=== PATIENT | male | born 1945 | race Caucasian/White ===

== ENCOUNTER 2019-11-10 10:49 | Day surgery (SDC) | payer BC ==
[2019-11-09 16:43] LABS: Urine Appearance CLEAR; Urine Bilirubin NEGATIVE (NEG); Urine Blood 3+ (NEG); Urine Color YELLOW; Urine Glucose NEGATIVE (NEG); Urine Protein 1+ (NEG); Urine Urobilinogen 0.2 mg/dL (0.2-1.0)
[2019-11-09 16:45] LABS: Absolute Lymphocytes (CBC) 1.3 K/uL (0.7-4.9); Hematocrit 34.9 % (39.6-49.0); MPV 9.2 fL (7.6-11.3); RBC Red Blood Cell Count 4.07 M/uL (4.33-5.43)
[2019-11-09 16:48] LABS: Urine Microscopic Reflex ORDER UMIC
[2019-11-09 16:51] LABS: Protime INR 1.02
[2019-11-09 17:04] LABS: Potassium 3.9 mmol/L (3.5-5.1)
[2019-11-09 17:05] LABS: Urine Bacteria <20 /HPF (NONE SEEN); Urine Culture Reflex Order NOT NEEDED; Urine Mucus 2+ /HPF (NONE SEEN); Urine RBC >50 /HPF (NONE SEEN)
[2019-11-09 17:06] LABS: Phosphorus 3.3 mg/dL (2.5-4.9); Uric Acid 5.3 mg/dL (3.5-7.2)
[2019-11-10] MEDS ORDERED: Ringers Lactate 1,000 ML IV ONE (11:01)
[2019-11-10] MEDS ORDERED: GENTAMICIN 80 MG/100 ML BAG 80 MG/100 ML BAG IV ONE (11:01)
[2019-11-10] MEDS ORDERED: FENTANYL CITR 100 MCG/2 ML ONE (12:06)
[2019-11-10] MEDS ORDERED: propofoL 200 MG/20 ML VIAL IV ONE (12:06)
[2019-11-10] MEDS ORDERED: LIDOCAINE 1% MPF 5 ML VIAL ONE (12:06)
[2019-11-10] MEDS ORDERED: Phenylephrine HCl 10 MG/ML 1 ML VIAL ONE (12:06)
[2019-11-10] MEDS ORDERED: MIDAZOLAM HCL 2 MG/2 ML INJ ONE (12:06)
[2019-11-10] MEDS ORDERED: EPHEDRINE SULF 50 MG/ML VIAL ONE (12:07)
[2019-11-10] MEDS ORDERED: ATROPINE SULF 1 MG/10 ML SYR IV ONE (12:07)
[2019-11-10] MEDS ORDERED: NS 0.9% VIAL 10 ML ONE (12:07)
[2019-11-10] MEDS ORDERED: KETOROLAC 30 MG/ML INJ ONE (12:26)
[2019-11-10] MEDS ORDERED: ONDANSETRON 4 MG/2 ML VIAL ONE (12:36)
[2019-11-10] MEDS ORDERED: Mastisol Adhesive Liq ONE (13:18)
--- NOTE | 2019-11-10 13:30 | RAD REPORT ---
EXAM DESCRIPTION: RAD - Urethrocystogrphy Retrograde - 11/10/2019 1:25 pm CLINICAL HISTORY: STENT COMPARISON: No comparisons FINDINGS: Total fluoro time: 2 minutes 54 seconds.
[2019-11-10 15:10] VITALS: BP 160/62; TEMP 97; O2SAT 98
== END 2019-11-10 14:55 | disposition home or self-care (01) ==
LOC: OR 10:49
PROVIDERS: ATTEND Urology
PROC: 0T768DZ Dilation of Right Ureter with Intraluminal Device, Via Natural or Artificial Opening Endoscopic (ICD-10-PCS; 2019-11-10)
PROC: 0TF68ZZ Fragmentation in Right Ureter, Via Natural or Artificial Opening Endoscopic (ICD-10-PCS; principal; 2019-11-10 12:00)
DX: N20.1 Calculus of ureter (principal); Z87.891 Personal history of nicotine dependence
CPT/HCPCS: 87088; 85025; 87086; 80048; 36415; 84100; 85610; 84550; 85730; 82360; 74450; 51610; 52356; G0103; J2704; J3010; J7120; J1580; J2405; 81003; 81015; J2250; J2370

== ENCOUNTER 2022-08-24 14:21 | Emergency (ER) | payer OTHER ==
--- OUTSIDE RECORDS SUMMARY | 2022-08-24 14:25 | XMS REPORT | Continuity of Care Document ---
:1945 Author Organization [facility] t Address [address] [place] [address] Care Team Providers Name Role Phone AILYN GALVAN Primary Care Physician Unavailable Ailyn Galvan MD Attending Clinician AILYN GALVAN Attending Clinician Unavailable Cricket Muniz Attending Clinician Payers Payer Name Policy Type Policy Number Effective Date Expiration Date S ource Problems Condition Condition Condition Status Onset Resolution Last Treating Co mments Source Name Details Category Date Date Treatment Clinician Date Obesity Obesity Disease Active 2015-11 Univers (BMI (BMI 2-02 ity of 30-39.9) 30-39.9) 00:00: [address] Branch Difficult Difficult Disease Active 2015-11 Overview: Univers intubation intubation 2-02 Formattin ity of 00:00: g of this note Medical might be Branch different from the original. DLx31. MIL 2 - Grade 32. MAC 4 - Grade 33. CMAC 3 - Grade 2b, difficult placement with stylet, required twisting to pass cords. Hyperglyce Hyperglyce Disease Active 2015-11 U nivers gladis gladis 2-01 ity of 00:00: Medical Branch Melanoma Melanoma Disease Active 2015-11 Unive rs of ear, of ear, 0-29 ity of left left 00:00: Medical Branch Psoriasis Psoriasis Disease Active 2015-11 Uni vers 0-29 ity of 00:00: [place] [address] Medical Branch Malignant Malignant Problem Resolve 2022-02-02 Memoria melanoma melanoma d 02:40:18 l (disorder) (disorder) He rmann Resolved Problem 02/02/2022 [facility] Morbid Morbid Problem Active 2022-02-02 Uziel elijah obesity obesity 02:40:18 l (disorder) (disorder) He rmann Active Problem 02/02/2022 [facility] Vertigo Vertigo Problem Active 2022-02-02 Me moria (finding) (finding) 02:40:18 l Active Mikal Problem 02/02/2022 [facility] Psoriatic Psoriatic Problem Active 2022-02-02 Memoria arthritis arthritis 02:40:18 l (disorder) (disorder) He rmann Active Problem 02/02/2022 [facility] Allergies, Adverse Reactions, Alerts Allergy Allergy Status Severity Reaction(s) Onset Inactive Treating Comm ents Source Name Type Date Date Clinician NO KNOWN Drug Active Univers ALLERGIE Class ity of S [facility] Social History Social Habit Start Date Stop Date Quantity Comments Source Exposure to 2022-03-29 2022-04-08 Not sure [facility] SARS-CoV-2 00:00:00 16:12:00 [facility] (event) [place] Alcohol intake 2021-04-12 2021-04-12 0 /d [facility] 00:00:00 00:00:00 [facility] Social History 2021-02-14 2021-02-14 [facility] 18:44:28 18:44:28 Tobacco use and 2016-10-08 2016-10-[address] [facility] of exposure 00:00:00 00:00:00 [facility] History of 2000-09-24 Chews Tobacco University of tobacco use 00:00:00 [facility] Sex [birth year] Universit y of 00:00:00 00:00:00 [facility] Smoking Status Start Date Stop Date Source Former smoker 2016-10-08 00:00:00 2016-10-08 00:00:00 [facility] Medications Ordered Filled Start Stop Current Ordering Indication Dosage Frequency Signature Comments Components Source Medication Medication Date Date Medication? Clinician (SIG) Name Name etodolac Yes [id number] 400mg Take 1 Uni vers 400 mg 5-16 tablet by ity of tablet 00:00: mouth 2 [place] [address] (two) Medical times [place] daily with meals. etodolac Yes [id number] 400mg Take 1 Uni vers 400 mg 5-16 tablet by ity of tablet 00:00: mouth 2 [place] [address] (two) Medical times Branch daily with meals. ACETAMINOPH Yes Take by Uni vers EN (ANACIN 4-18 mouth. ity of AF ORAL) 16:19: [address] calcipotrie Yes Apply to [place] ne-betameth 4-18 area(s). ity of asone 16:19: [address] 0.005-0.064 Branch % Foam Acai Tamez Yes 4000mg Take 4,000 Univers Extract 500 4-18 mg by ity of mg Cap 16:19: mouth. [address] BEE POLLEN Yes 1{capsu Take 1 Un [place] ORAL 4-18 le} capsule by ity of 16:19: mouth. [address] ACETAMINOPH Yes Take by Uni vers EN (ANACIN 4-18 mouth. ity of AF ORAL) 16:19: [address] calcipotrie Yes Apply to [place] ne-betameth 4-18 area(s). ity of asone 16:19: [place] ([address] 0.005-0.064 Branch % Foam Acai Tamez Yes 4000mg Take 4,000 Univers Extract 500 4-18 mg by ity of mg Cap 16:19: mouth. [address] BEE POLLEN Yes 1{capsu Take 1 [facility] [place] ORAL 4-18 le} capsule by ity of 16:19: mouth. [address] predniSONE Yes [id number] 20mg Take 1 Un [place] 20 mg 4-18 tablet by ity of tablet 00:00: mouth [place] 00 daily. Medical Branch predniSONE 0 Yes [id number] 20mg Take 1 Un [place] 20 mg 4-18 tablet by ity of tablet 00:00: mouth 00 daily. Medical Branch latanoprost Yes 1[drp] Place 1 U nivers 0.005 % 2-07 Drop in ity of ophthalmic 00:00: both eyes [place] drops 00 every Medical evening. Branch latanoprost Yes 1[drp] Place 1 U nivers 0.005 % 2-07 Drop in ity of ophthalmic 00:00: [place] eyes [place] drops 00 every Medical evening. Branch gluc-leland-m Yes 2{tbl} Take 2 Un [place] sm#1-C-lex 4-24 tablets by it 13:37: mouth [place] (OSTEO 56 daily. Medical BI-FLEX Branch TRIPLE STRENGTH) 750 mg-644 mg- 30 mg-1 mg Tab gluc-leland-m Yes 2{tbl} Take 2 Un [place] sm#1-C-lex 4-24 tablets by it 13:37: mouth [place] (OSTEO 56 daily. Medical BI-FLEX Branch TRIPLE STRENGTH) 750 mg-644 mg- 30 mg-1 mg Tab folic acid Yes 2{tbl} Take 2 Uni vers (FA-8) 0.8 4-17 tablets by ity of mg Cap 15:19: mouth [place] 41 daily. Medical Branch coQ10, Yes 2{capsu Take 2 Univer s ubiquinol, 4-17 le} capsules ity o f 100 mg Cap 15:19: by mouth [place] 41 daily. Medical Branch folic acid Yes 2{tbl} Take 2 Uni vers (FA-8) 0.8 4-17 tablets by ity of mg Cap 15:19: mouth [place] 41 daily. Medical Branch coQ10, Yes 2{capsu Take 2 Univer s ubiquinol, 4-17 le} capsules ity o f 100 mg Cap 15:19: by mouth [place] 41 daily. Medical Branch loratadine Yes 20mg Take 20 mg U nivers (CLARITIN 4-17 by mouth ity of LIQUI-GEL) 15:18: daily. [place] 10 mg 21 Medical capsule Branch saw Yes 160mg Take 160 Univers palmetto 80 4-17 mg by ity of mg capsule 15:18: mouth 2 [place] (two) Medical times Branch daily. loratadine Yes 20mg Take 20 mg U nivers (CLARITIN 4-17 by mouth ity of LIQUI-GEL) 15:18: daily. [place] 10 mg 21 Medical capsule Branch saw Yes 160mg Take 160 Univers palmetto 80 4-17 mg by ity of mg capsule 15:18: mouth [place] (two) Medical times Branch daily. meclizine Yes TAKE 1 Univer s 25 mg 3-29 TABLET BY ity of tablet 00:00: MOUTH TWICE Medical DAILY Branch NEEDED meclizine Yes TAKE 1 Univer s 25 mg 3-29 TABLET BY ity of tablet 00:00: MOUTH 00 TWICE Medical DAILY Branch NEEDED Otezla Yes 30 mg, PO, Memor ia 3-24 BID, 0 l 18:55: Refill(s) [place] 00 meclizine Yes 50 mg = 2 Mem oria 25 mg oral 3-24 tab, PO, l tablet 18:47: BID, PRN Other-See Comments, # 30 tab, 0 Refill(s) hydroCHLORO Yes [id number] 12.5mg Take 0.5 Univers thiazide 25 2-20 tablets by it y of mg tablet 00:00: mouth daily. Medical Branch hydroCHLORO Yes [id number] 12.5mg Take 0.5 Univers thiazide 25 2-20 tablets by it y of mg tablet 00:00: mouth daily. Medical Branch BETA Yes Take by Univers CAROTENE -19 mouth. ity of ORAL 19:01: [address] Branch apremilast Yes Take by Uni vers (OTEZLA - mouth. ity of ORAL) 19:01: [address] Branch nutritional Yes Take by Uni vers supplement/ 2- mouth. ity of fiber 19:01: [place] (QUINOA-ABIGAIL Medical E-HEMP Branch ORAL) [facility] Yes Take by Unive rs ASPIRIN - mouth. ity of ORAL 19:01: [address] Branch krill-om-3- Yes Take by Uni vers dha-epa-austen - mouth. ity of spho-ast 19:01: [place] (KRILL OIL) Medical 1,000-170-5 Branch 0-80 mg Cap rutin/hesp/ Yes Take by Uni vers bioflav/C/h 2- mouth. ity of 19:01: [place] (BIOFLEX 08 Medical ORAL) Branch vitamin C Yes 100mg Take 100 Uni vers (VITAMIN C) 2-19 mg by ity of 100 mg 19:01: mouth [place] tablet 08 daily. Medical Branch Zinc 0 Yes Take by Univers Sulfate 2- mouth. ity of (ZINC-15) 19:01: [place] 66 mg Tab Medical Branch Cholecalcif Yes Take by Uni vers wilfredo, 2-19 mouth. ity of Vitamin D3, 19:01: [place] (VITAMIN 08 Medical D3) 10 mcg Branch (400 unit) capsule elderberry Yes Take by Univ ers fruit 2- mouth. ity of (ELDERBERRY 19:: [place] ORAL) Medical Branch Echinacea [facility] Purpurea 2- mouth. ity of Extract 19:: [place] (ECHINACEA) Medical 125 mg Tab Branch vit Yes Take by [facility] C-E-zinc 2- mouth. ity of ox-marv-lut 19:01: [place] -zeax Medical (ICAPS Branch AREDS2) 250 mg-200 unit -12.5 mg-1 mg Cap turmeric Yes 250mg Take 250 Univ ers capsule 2-19 mg by ity of 19:01: mouth. [place] [address] Medical Branch RED YEAST Yes [facility] RICE ORAL 2-19 mouth. ity of 19:01: [place] [address] Medical Branch UBIQUINONE Yes Take by Univ ers ORAL 2-19 mouth. ity of 19:01: [place] [address] Medical Branch VITAMIN K2 Yes Take by Univ ers ORAL 2-19 mouth. ity of 19:01: [place] [address] Medical Branch MV with Yes Take by [facility] Min-Lycopen 2-19 mouth. ity of e-Lutein 19:01: [place] (CENTRUM 08 Medical SILVER) Branch 0.4-300-250 mg-mcg-mcg Tab levocetiriz Yes Take by Uni vers ine 2-19 mouth. ity of dihydrochlo 19:01: [place] rid (XYZAL 08 Medical ORAL) Branch Car-B-Pen Yes [facility] Ta/p-ephed 2-19 mouth. ity of jara 19:01: [place] (PSEUDOEPH- 08 Medical CARBETAPENT Branch TANNATES ORAL) BETA Yes Take by Univers CAROTENE - mouth. ity of ORAL 19:01: [place] 08 Medical Branch apremilast Yes Take by [facility] ers (OTEZLA - mouth. ity of ORAL) 19:01: [place] [address] Medical Branch nutritional Yes Take by Uni vers supplement/ 2- mouth. ity of fiber 19:01: [place] (QUINOA-ABIGAIL 08 Medical E-HEMP Branch ORAL) [facility] Yes [facility] ASPIRIN - mouth. ity of ORAL 19:01: [place] [address] Medical Branch krill-om-3- Yes Take by Uni vers dha-epa-austen 01-12 mouth. ity of spho-ast 19:01: [place] (KRILL OIL) [address] [place] [address] 1,000-170-5 Branch 0-80 mg Cap rutin/hesp/ Yes Take by Uni vers bioflav/C/h 01-12 mouth. ity of [id number] 19:01: [place] (BIOFLEX 08 Medical ORAL) Branch vitamin C Yes 100mg Take 100 Uni vers (VITAMIN C) 2- mg by ity of 100 mg 19:01: mouth [place] tablet 08 daily. Medical Branch Zinc Yes Take by Univers Sulfate - mouth. ity of (ZINC-15) 19:01: [place] 66 mg Tab 08 Medical Branch Cholecalcif Yes Take by Uni vers wilfredo, - mouth. ity of Vitamin D3, 19:01: [place] (VITAMIN 08 Medical D3) 10 mcg Branch (400 unit) capsule elderberry Yes Take by [facility] ers fruit 2- mouth. ity of (ELDERBERRY 19:01: [place] ORAL) 08 Medical Branch Echinacea Yes Take [facility] Purpurea 2- mouth. ity of Extract 19:01: [place] (ECHINACEA) Medical 125 mg Tab Branch vit Yes Take by [facility] C-E-zinc - mouth. ity of ox-marv-lut 19:01: [place] -zeax Medical (ICAPS Branch AREDS2) 250 mg-200 unit -12.5 mg-1 mg Cap turmeric Yes 250mg Take 250 [facility] ers capsule 2-19 mg by ity of 19:01: mouth. [address] Branch RED YEAST Yes Take by [facility] RICE ORAL 2- mouth. ity of 19:01: [address] Branch UBIQUINONE Yes Take by Univ ers ORAL 2- mouth. ity of 19:01: [address] Branch VITAMIN K2 Yes Take by [facility] ers ORAL 2- mouth. ity of 19:01: [address] Branch MV with Yes Take by [facility] Min-Lycopen 01-12 mouth. ity of e-Lutein 19:01: [place] (CENTRUM 08 Medical SILVER) Branch 0.4-300-250 mg-mcg-mcg Tab levocetiriz Yes Take by [facility] vers ine 01-12 mouth. ity of dihydrochlo 19:01: [place] rid (XYZAL 08 Medical ORAL) Branch Car-B-Pen Yes Take by [facility] rs Ta/p-ephed 01-12 mouth. ity of jara 19:01: [place] (PSEUDOEPH- 08 Medical CARBETAPENT Branch TANNATES ORAL) Red Yeast Yes Take by [facility] rs Rice - mouth. ity of Extract 600 19:01: [place] mg Cap 07 Medical Branch Red Yeast 0 Yes [facility] Rice - mouth. ity of Extract 600 19:01: [place] mg Cap 07 Medical Branch clobetasoL Yes Univers 0.05 % 2-01 ity of cream 00:00: Medical Branch clobetasoL 2020-0 Yes Univers 0.05 % 2-01 ity of cream 00:00: [place] [address] Medical Branch Methylpredn 2015-11 Yes Taper as [place] isolone 2-13 follows: 4 ity of (MEDROL) 4 00:00: tabs daily [place] mg tablet 00 for 3 Medical days, 3 Branch for 3 days, 2 for 3 days, 1 for 3 days Methylpredn 2015-11 Yes Taper as [place] isolone 2-13 follows: 4 ity of (MEDROL) 4 00:00: tabs daily [place] mg tablet 00 for 3 Medical days, 3 Branch for 3 days, 2 for 3 days, 1 for 3 days LACTOBACILL 2015-11 Yes 2{capsu Take 2 U nivers US 2-02 le} capsules ity of RHAMNOSUS 18:27: by mouth [place] GG 10 daily. Medical ([facility] Branch ORAL) Multivitami 2015-11 Yes 1{tbl} Take 1 Un [place] ns-Minerals 2-02 tablet by ity of -Lutein 18:27: mouth [place] (MULTIVITAM 10 daily. Medica l IN 50 PLUS) Branch Tab Milk 2015-11 Yes 2{tbl} Take 2 Univers Thistle 500 2-02 tablets by it y of mg Cap 18:27: mouth [place] 10 daily. Medical Branch Niacin-Inos 2015-11 Yes 2{tbl} Take 2 [place] itol 2-02 tablets by ity of Niacinate 18:27: mouth [place] 500 mg Cap 10 daily. Medical Branch Red Yeast 2015-11 Yes 2{tbl} Take 2 Univ ers Rice 2-02 tablets by ity of Extract 18:27: mouth [place] (CHOLESTERO 10 daily. Medica l L Branch MANAGEMENT) 600 mg Cap Safflower 2015-11 Yes 4{tbl} Take 4 Univ ers Oil-Linolei 2-02 tablets by it y of c Acid,Co 18:27: mouth [place] (CLA) 1,000 10 daily. Medica l mg Cap Branch LACTOBACILL 2015-11 Yes 2{capsu Take 2 U nivers US 2-02 le} capsules ity of RHAMNOSUS 18:27: by [place] GG 10 daily. Medical ([facility] Branch ORAL) Multivitami 2015-11 Yes 1{tbl} Take 1 Un [place] ns-Minerals 2-02 tablet by ity of -Lutein 18:27: mouth [place] (MULTIVITAM 10 daily. Medica l IN 50 PLUS) Branch Tab Milk 2015-11 Yes 2{tbl} Take 2 Univers Thistle 500 2-02 tablets by it y of mg Cap 18:27: mouth [place] 10 daily. Medical Branch Niacin-Inos 2015-11 Yes 2{tbl} Take 2 [place] itol 2-02 tablets by ity of Niacinate 18:27: mouth [place] 500 mg Cap 10 daily. Medical Branch Red Yeast 2015-11 Yes 2{tbl} Take 2 Univ ers Rice 2-02 tablets by ity of Extract 18:27: mouth [place] (CHOLESTERO 10 daily. Medica l L Branch MANAGEMENT) 600 mg Cap Safflower 2015-11 Yes 4{tbl} Take 4 Univ ers Oil-Linolei 2-02 tablets by it y of c Acid,Co 18:27: mouth [place] (CLA) 1,000 10 daily. Medica l mg Cap Branch HYDROcodone 2015-11 Yes 1{tbl} Take 1 Un [place] -acetaminop 2-02 tablet by ity of hen (NORCO 00:00: mouth [place] 5) 5-325 mg 00 every 6 Medic al tablet (six) Branch hours as needed for Pain (scale 1-3), Pain (scale 4-6) or Pain (scale 7-10). HYDROcodone 2015-11 Yes 1{tbl} Take 1 [place] -acetaminop 2-02 tablet by ity of hen (NORCO 00:00: mouth [place] 5) 5-325 mg 00 every 6 Medic al tablet (six) Branch hours as needed for Pain (scale 1-3), Pain (scale 4-6) or Pain (scale 7-10). Vital Signs Vital Name Observation Time Observation Value Comments Source BMI 2022-04-08 21:18:00 35.13 kg/m2 [facility] Systolic blood 2022-04-08 21:18:00 130 [facility]Hg[facility] 2022-04-08 21:18:00 63 mm[Hg] [facility] Heart rate 2022-04-08 21:18:00 66 /min [facility] Body height 2022-04-08 21:18:00 182.9 cm [facility] Body weight 2022-04-08 21:18:00 117.482 kg [facility] Systolic (mm Hg) 2022-01-30 16:37:00 Uziel rial [place] Diastolic (mm Hg) 2022-01-30 16:37:00 Mem orial [place] Heart Rate 2022-01-30 16:37:00 [place] [facility] Respitory Rate 2022-01-30 16:37:00 Memori al [place] Height 2022-01-30 16:37:00 181.61 cm Memorial [place] Weight 2022-01-30 16:37:00 [facility] [place] BMI Calculated 2022-01-30 16:37:00 Memori al [place] Systolic (mm Hg) 2021-11-01 20:34:00 Uziel rial [place] Diastolic (mm Hg) 2021-11-01 20:34:00 Mem orial [place] Heart Rate 2021-11-01 20:34:00 [facility] [place] Respitory Rate 2021-11-01 20:34:00 Memori al [place] Height 2021-11-01 20:34:00 180.34 cm [facility] [place] Weight 2021-11-01 20:34:00 [facility] [place] BMI Calculated 2021-11-01 20:34:00 Memori al [place] Systolic (mm Hg) 2021-07-18 19:05:00 Uziel rial [place] Diastolic (mm Hg) 2021-07-18 19:05:00 Mem orial [place] Heart Rate 2021-07-18 19:05:00 [facility] [place] Respitory Rate 2021-07-18 19:05:00 Memori al [place] Height 2021-07-18 19:05:00 177.8 cm [facility] [place] Weight 2021-07-18 19:05:00 [facility] [place] BMI Calculated 2021-07-18 19:05:00 Memori al [place] Systolic (mm Hg) 2021-03-14 19:06:00 Uziel rial [place] Diastolic (mm Hg) 2021-03-14 19:06:00 Mem orial [place] Heart Rate 2021-03-14 19:06:00 [facility] [place] Respitory Rate 2021-03-14 19:06:00 Memori al [place] Weight 2021-03-14 19:06:00 [facility] [place] Systolic (mm Hg) 2021-02-14 18:40:00 Uziel rial [place] Diastolic (mm Hg) 2021-02-14 18:40:00 Mem orial [place] Heart Rate 2021-02-14 18:40:00 [facility] [place] Respitory Rate 2021-02-14 18:40:00 Memori al [place] Height 2021-02-14 18:40:00 180.34 cm [facility] [place] Weight 2021-02-14 18:40:00 [facility] [place] BMI Calculated 2021-02-14 18:40:00 Rylee Hendrix Procedures This patient has no known procedures. Encounters Start End Encounter Admission Attending Care Care Encounter Source Date/Time Date/Time Type Type Clinicians Facility Department ID 2022-04-08 2022-04-08 Office Cole [email or web address] [id number] Univers 16:30:00 16:45:00 Visit [facility] [id number] y Rey HERRUTH [id number] [place] JHONY?BLEA [id number] [address] MEDICAL OFFICE BUILDING 2022-04-08 2022-04-08 [facility] [id number] Univers 16:30:00 16:30:00 AILYN fidel [facility] 2022-01-30 2022-01-31 Outpatient nullFlavo MNA [id number] Memoria 16:30:00 05:59:59 r Neurology 04 gio Korin Ren 2022-01-30 2022-01-30 Outpatient ORION MunizSCHYESSI [id number] 10:30:00 23:59:59 Cricket Lon Amos 2022-01-30 2022-01-30 Outpatient MHIE MHIE [id number] Memoria 10:30:00 10:30:00 Lon gio Ren 2021-11-01 2021-11-02 Outpatient nullFlavo MNA [id number] Memoria 20:15:00 05:59:59 r Neurology 03 gio Ren 2021-11-01 2021-11-01 Outpatient ORION MunizSCHYESSI [id number] 14:15:00 23:59:59 Cricket Charles Amos 2021-11-01 2021-11-01 Outpatient MHIE MHIE [id number] Memoria 14:15:00 14:15:00 Charles gio Ren 2021-07-18 2021-07-19 Outpatient nullFlavo MNA [id number] Memoria 19:00:00 04:59:59 r Neurology 02 gio Ren 2021-07-18 2021-07-18 Outpatient ORION Muniz MHNAVEEN [id number] 14:00:00 23:59:59 Cricket 02 Amos 2021-07-18 2021-07-18 Outpatient MHIE EBONI [id number] Memoria 14:00:00 14:00:00 02 gio Mikal 2021-03-14 2021-03-15 Outpatient nullFlavo MNA [id number] Memoria 19:00:00 04:59:59 r Neurology 01 l Korin Ren 2021-03-14 2021-03-14 Outpatient ORION Muniz NAVEEN [id number] 14:00:00 23:59:59 Cricket 01 Amos 2021-03-14 2021-03-14 Outpatient MHIE EBONI [id number] Memoria 14:00:00 14:00:00 01 gio Ren 2021-02-14 2021-02-15 Outpatient nullFlavo MNA [id number] Memoria 18:45:00 04:59:59 r Neurology 00 gio Ren 2021-02-14 2021-02-14 Outpatient ORION Muniz [id number] 13:45:00 23:59:59 Cricket 00 Amos 2021-02-14 2021-02-14 Outpatient EBONI LYN [id number] Memoria 13:45:00 13:45:00 00 gio Ren Results This patient has no known results.
[2022-08-24 15:15] LABS: Absolute Lymphocytes (CBC) 0.4 K/uL (0.7-4.9); Hematocrit 36.7 % (39.6-49.0); Lymphocytes % 6.8 % (15.3-44.8); MPV 8.1 fL (7.6-11.3); RBC Red Blood Cell Count 4.22 M/uL (4.33-5.43)
[2022-08-24 15:35] LABS: Albumin 3.5 g/dL (3.4-5.0); Bilirubin Total 0.4 mg/dL (0.2-1.0); Magnesium 1.9 mg/dL (1.8-2.4); Potassium 3.9 mmol/L (3.5-5.1); Protein, Total 7.2 g/dL (6.4-8.2)
--- NOTE | 2022-08-24 16:09 | RAD REPORT ---
EXAM DESCRIPTION: RAD - Chest Single View - 08/24/2022 3:59 pm CLINICAL HISTORY: SOB COMPARISON: Two view chest September 2019 TECHNIQUE: AP portable chest image was obtained 08/24/2022 3:59 pm . FINDINGS: Lung volumes are low compared to prior study and there is under penetrated film technique. This accentuates the baseline interstitial pattern. A mild interstitial edema or infiltrate could be masked. No focal consolidation. Significant failure or volume overload are not suspected. Heart and vasculature are normal. No measurable pleural effusion and no pneumothorax. No acute bony abnormality seen. No acute aortic findings suspected. IMPRESSION: No focal mass or consolidation. Baseline interstitial pattern, accentuated by exam technique, could mask a mild interstitial edema or infiltrate.
--- NOTE | 2022-08-24 16:59 | ER ---
Nurse's Notes [facility] Name: Serg Mix Jr Age: 77 yrs Sex: Male : 1945 Arrival Date: 08/24/2022 Time: 14:23 Bed 13 Private MD: Logan Galvan Diagnosis: Coronavirus infection, unspecified Presentation: 08/24 14:26 Chief complaint: Patient states: I have had a cough, sore throat, and shortness of bm7 breath since . Coronavirus screen: Client presents with at least one sign or symptom that may indicate coronavirus-19. Standard/surgical mask placed on the client. Ebola Screen: No symptoms or risks identified at this time. Initial Sepsis Screen: Does the patient meet any 2 criteria? No. Patient's initial sepsis screen is negative. Does the patient have a suspected source of infection? No. Patient's initial sepsis screen is negative. Risk Assessment: Do you want to hurt yourself or someone else? Patient reports no desire to harm self or others. Onset of symptoms was August 22, 2022. 14:26 Method Of Arrival: Ambulatory 7 14:26 Acuity: SIDNEY 3 bm7 Triage Assessment: 14:26 General: Appears in no apparent distress. uncomfortable, Behavior is calm, cooperative, bm7 appropriate for age. Pain: Complains of pain in throat. EENT: Oral mucosa is moist. Throat is reddened Parent/caregiver reports the patient having nasal congestion nasal discharge. Neuro: No deficits noted. Cardiovascular: No deficits noted. Respiratory: Reports shortness of breath at rest on exertion cough that is non-productive, pain with cough pain with respiration Airway is patent Respiratory effort is even, unlabored, Respiratory pattern is regular, symmetrical, Breath sounds are clear bilaterally. Onset: The symptoms/episode began/occurred gradually, the patient has moderate shortness of breath. GI: No deficits noted. No signs and/or symptoms were reported involving the gastrointestinal system. : No deficits noted. No signs and/or symptoms were reported regarding the genitourinary system. Derm: No deficits noted. No signs and/or symptoms reported regarding the dermatologic system. Musculoskeletal: No deficits noted. No signs and/or symptoms reported regarding the musculoskeletal system. Historical: - Allergies: 14:26 No Known Allergies; bm7 - Home Meds: 14:26 Otezla 30 mg oral tab 1 tab 2 times per day [Active]; tremfya [Active]; aspirin 81 mg bm7 Oral cap 1 cap once daily [Active]; etodolac 400 mg Oral tab 1 tab 2 times per day [Active]; - PMHx: 14:26 psoriatic arthritis; bm7 - PSHx: 14:26 Appendectomy; bm7 - Immunization history:: Adult Immunizations up to date, Client reports receiving the 2nd dose of the Covid vaccine, Client reports receiving the 1st dose of the Covid vaccine. - Social history:: Smoking status: Patient denies any tobacco usage or history of. Screenin:43 Abuse screen: Denies threats or abuse. Nutritional screening: No deficits noted. em6 Tuberculosis screening: No symptoms or risk factors identified. 15:00 Fall Risk IV access (20 points). Total Espinoza Fall Scale indicates No Risk (0-24 pts). em6 Assessment: 14:38 General: Appears in no apparent distress. Behavior is cooperative. Pain: Denies pain. em6 Neuro: Hall Agitation-Sedation Scale (RASS): 0 - Alert and Calm Level of Consciousness is awake, alert, obeys commands, Oriented to person, place, time, situation. Cardiovascular: Reports shortness of breath, Denies chest pain, Patient's skin is warm and dry. Rhythm is sinus rhythm. Respiratory: Reports Airway is patent Respiratory effort is even, unlabored, Respiratory pattern is regular, symmetrical, Breath sounds are clear bilaterally. GI: Patient currently denies diarrhea, nausea. : No signs and/or symptoms were reported regarding the genitourinary system. EENT: Reports nasal congestion nasal discharge that is green. Derm: No signs and/or symptoms reported regarding the dermatologic system. Musculoskeletal: Circulation, motion, and sensation intact. Range of motion: intact in all extremities. 15:40 Reassessment: No changes from previously documented assessment. Patient and/or family em6 updated on plan of care and expected duration. Pain level reassessed. Patient is alert, oriented x 3, equal unlabored respirations, skin warm/dry/pink. 16:40 Reassessment: No changes from previously documented assessment. Patient and/or family em6 updated on plan of care and expected duration. Pain level reassessed. Patient is alert, oriented x 3, equal unlabored respirations, skin warm/dry/pink. 17:40 Reassessment: No changes from previously documented assessment. Patient and/or family em6 updated on plan of care and expected duration. Pain level reassessed. Patient is alert, oriented x 3, equal unlabored respirations, skin warm/dry/pink. Vital Signs: 14:24 BP 143 / 56; Pulse 89; Resp 20; Temp 99.4(O); Pulse Ox 96% on R/A; Weight 114.76 kg bm7 (R); Height 6 ft. 0 in. (182.88 cm); Pain 5/10; 15:30 BP 139 / 80; Pulse 79; Resp 20; Pulse Ox 100% ; em6 16:30 BP 136 / 69; Pulse 84; Resp 20; Pulse Ox 96% on R/A; em6 17:30 BP 135 / 81; Pulse 72; Resp 18; Pulse Ox 98% on R/A; em6 14:24 Body Mass Index 34.31 (114.76 kg, 182.88 cm) bm7 ED Course: 14:23 Patient arrived in ED. am2 14:23 Logan Galvan MD is Private Physician. am2 14:24 Arm band placed on right wrist. bm7 14:26 Triage completed. bm7 14:30 Angela Euceda MD is Attending Physician. sd2 14:33 Aminta Davenport, RN is Primary Nurse. em6 14:43 Bed in low position. Call light in reach. Side rails up X2. groundwater monitoring technician on. Pulse em6 ox on. NIBP on. Warm blanket given. 15:00 Inserted saline lock: 20 gauge in right antecubital area, using aseptic technique. em6 Blood collected. 15:09 Influenza Screen (a \\T\\ B) Sent. em6 15:09 SARS-COV-2 RT PCR (Document "Date of Onset" if Symptomatic) Sent. em6 15:09 Troponin High Sensitivity Sent. em6 15:09 CMP Sent. em6 15:09 CBC with Diff Sent. em6 15:09 Magnesium Sent. em6 15:09 BNP Sent. em6 16:59 Logan Galvan MD is Referral Physician. sd2 17:45 No provider procedures requiring assistance completed. IV discontinued, intact, em6 bleeding controlled, No redness/swelling at site. Pressure dressing applied. 17:50 XRAY Chest (1 view) Sent. em6 Administered Medications: No medications were administered Medication: 17:45 VIS not applicable for this client. em6 Outcome: 16:59 Discharge ordered by . sd2 17:45 Condition: stable em6 17:45 Discharged to home ambulatory, with significant other. em6 17:45 Discharge instructions given to patient, significant other, Instructed on discharge instructions, follow up and referral plans. medication usage, Demonstrated understanding of instructions, follow-up care, medications, Prescriptions given X 1. 17:55 Patient left the ED. em6 Signatures: Batool Archer am2 Debbi Stone, RN RN bm7 Angela Euceda MD MD sd2 Aminta Davenport RN RN em6 Corrections: (The following items were deleted from the chart) 17:50 14:38 Cardiovascular: Reports shortness of breath, Denies chest pain, Patient's skin is em6 warm and dry. em6
--- NOTE | 2022-08-24 16:59 | EDPHYS ---
Physician Documentation [facility] Name: Serg Mix Jr Age: 77 yrs Sex: Male : 1945 Arrival Date: 08/24/2022 Time: 14:23 Bed 13 Private MD: Logan Galvan ED Physician Angela Euceda HPI: 08/24 14:44 This 77 yrs old Male presents to ER via Ambulatory with complaints of Shortness Of sd2 Breath, Fever, Dizziness, Runny Nose. 14:44 77-year-old male presents with chief complaint of cough and shortness of breath. He sd2 reports he initially started getting sick Th night with some mild shortness of breath and then developed a cough that has been productive of white sputum. He reports worsening shortness of breath with exertion but denies any fevers. He denies any significant chest pain, vomiting or diarrhea. He has not had any known recent sick contacts but was recently at a conference and just returned on an airplane from [place] where he was around multiple people. He has not noticed any leg edema or leg pain. His airplane ride was short. NO recent long travel. . Historical: - Allergies: 14:26 No Known Allergies; bm7 - Home Meds: 14:26 Otezla 30 mg oral tab 1 tab 2 times per day [Active]; tremfya [Active]; aspirin 81 mg bm7 Oral cap 1 cap once daily [Active]; etodolac 400 mg Oral tab 1 tab 2 times per day [Active]; - PMHx: 14:26 psoriatic arthritis; bm7 - PSHx: 14:26 Appendectomy; bm7 - Immunization history:: Adult Immunizations up to date, Client reports receiving the 2nd dose of the Covid vaccine, Client reports receiving the 1st dose of the Covid vaccine. - Social history:: Smoking status: Patient denies any tobacco usage or history of. ROS: 14:44 Constitutional: Negative for fever, chills, and weight loss, Eyes: Negative for injury, sd2 pain, redness, and discharge, ENT: Negative for injury, pain, and discharge, Cardiovascular: Negative for chest pain, palpitations, and edema. 14:44 Abdomen/GI: Negative for abdominal pain, nausea, vomiting, diarrhea. MS/Extremity: Negative for injury and deformity, Skin: Negative for injury, rash, and discoloration, Neuro: Negative for headache, numbness and tingling. 14:44 Respiratory: Positive for cough, dyspnea on exertion, shortness of breath, Negative for wheezing. Exam: 14:44 Constitutional: This is a well developed, well nourished patient who is awake, alert, sd2 and in no acute distress. Head/Face: Normocephalic, atraumatic. Eyes: EOMI, normal conjunctiva bilaterally ENT: Nares patent. No nasal discharge, no septal abnormalities noted. Oropharynx with no redness, swelling, or masses, exudates, or evidence of obstruction, uvula midline. Mucous membranes moist. Chest/axilla: Normal chest wall appearance and motion. Nontender with no deformity. Cardiovascular: Regular rate and rhythm with a normal S1 and S2. No gallops, murmurs, or rubs. 2+ distal pulses. Respiratory: Lungs have equal breath sounds bilaterally, clear to auscultation and percussion. No rales, rhonchi or wheezes noted. No increased work of breathing, no retractions or nasal flaring. Abdomen/GI: Soft, non-tender, with normal bowel sounds. No guarding or rebound. No evidence of tenderness throughout. Skin: Warm, dry with normal turgor. Normal color with no rashes, no lesions, and no evidence of cellulitis. MS/ Extremity: Pulses equal, no cyanosis. Neurovascular intact. Full, normal range of motion. Ambulatory without difficulty. Psych: Awake, alert, with orientation to person, place and time. Behavior, mood, and affect are within normal limits. 17:30 ECG was reviewed by the Attending Physician. Normal sinus rhythm, rate 82, no STEMI sd2 criteria, RBBB present Vital Signs: 14:24 BP 143 / 56; Pulse 89; Resp 20; Temp 99.4(O); Pulse Ox 96% on R/A; Weight 114.76 kg bm7 (R); Height 6 ft. 0 in. (182.88 cm); Pain 5/10; 15:30 BP 139 / 80; Pulse 79; Resp 20; Pulse Ox 100% ; em6 16:30 BP 136 / 69; Pulse 84; Resp 20; Pulse Ox 96% on R/A; em6 17:30 BP 135 / 81; Pulse 72; Resp 18; Pulse Ox 98% on R/A; em6 14:24 Body Mass Index 34.31 (114.76 kg, 182.88 cm) bm7 MDM: 14:30 Patient medically screened. sd2 14:44 Differential diagnosis: Differential diagnosis includes but is not limited to: ACS, sd2 DVT/PE, pneumothorax, dissection, musculoskeletal, anxiety, anemia, electrolyte abnormality, pneumonia, CHF, COPD among others. Data reviewed: vital signs, nurses notes. 16:58 Data reviewed: lab test result(s), EKG, radiologic studies. Counseling: I had a sd2 detailed discussion with the patient and/or guardian regarding: the historical points, exam findings, and any diagnostic results supporting the discharge/admit diagnosis, lab results, radiology results, the need for outpatient follow up. Medical screen evaluation completed. [facility] emergency medical condition absent. ED course: Patient is COVID-positive with evidence of possible pneumonia on chest x-ray. Troponin is negative and EKG with no ischemic changes. The patient does not exhibit any respiratory distress or hypoxia. He was offered Paxlovid but after discussion of risks and benefits has declined. He will be placed on azithromycin due to the pneumonia seen on chest x-ray. He is comfortable with the plan for discharge with continued supportive care and outpatient follow-up with his primary care doctor. He verbalizes understanding of discharge plan and strict return precautions.. 08/24 14:44 Order name: CBC with Diff 2 08/24 14:44 Order name: CMP sd2 08/24 14:44 Order name: Troponin High Sensitivity 2 08/24 14:44 Order name: Magnesium sd2 08/24 14:44 Order name: BNP sd2 08/24 14:44 Order name: SARS-COV-2 RT PCR (Document "Date of Onset" if Symptomatic) sd2 08/24 14:44 Order name: Influenza Screen (a \\T\\ B) sd2 08/24 15:17 Order name: CBC with Automated Diff; Complete Time: 16:37 EDMS 08/24 15:32 Order name: Influenza Screen (A ; Complete Time: 16:37 EDMS 08/24 15:35 Order name: Comprehensive Metabolic Panel; Complete Time: 16:37 EDMS 08/24 15:35 Order name: Troponin High Sensitivity; Complete Time: 16:37 EDMS 08/24 15:35 Order name: NT PRO-BNP; Complete Time: 16:37 EDMS 08/24 15:35 Order name: Magnesium; Complete Time: 16:37 EDMS 08/24 15:59 Order name: SARS-COV-2 RT PCR; Complete Time: 16:37 EDMS 08/24 14:44 Order name: EKG - Nurse/Tech; Complete Time: 15:09 sd2 08/24 14:44 Order name: XRAY Chest (1 view) sd2 08/24 16:09 Order name: RAD; Complete Time: 16:37 EDMS Administered Medications: No medications were administered Disposition Summary: 08/24/22 16:59 Discharge Ordered Location: Home sd2 Problem: new sd2 Symptoms: have improved sd2 Condition: Stable sd2 Diagnosis - Coronavirus infection, unspecified sd2 Followup: sd2 - With: Logan Galvan MD - When: 2 - 3 days - Reason: Recheck today's complaints, Continuance of care, Re-evaluation by your physician Discharge Instructions: - Discharge Summary Sheet sd2 - COVID-19 sd2 - 10 Things You Can Do to Manage Your COVID-19 Symptoms at Home - [facility] sd2 Forms: - Medication Reconciliation Form sd2 - Thank You Letter sd2 - Antibiotic Education sd2 - Prescription Opioid Use sd2 Prescriptions: - azithromycin 250 mg Oral tablet - take 2 tablet by ORAL route once daily for 5 days then 1 tablet (250 mg) by sd2 oral route once daily for 4 days; 6 tablet; Refills: 0, Product Selection Permitted Signatures: Dispatcher [employer] Debbi Giraldo RN RN bm7 Angela Euceda MD MD sd2
[2022-08-24 18:10] VITALS: TEMP 99.4
[2022-08-24 18:22] VITALS: BP 135/81; O2SAT 98
--- NOTE | 2022-08-26 14:15 | EKG ---
Test Date: 2022-08-24 Test Time: 14:56:33 [employer] Sales Supervisor: MEASUREMENT RESULTS: Intervals: Rate: 81 TX: 172 QRSD: 164 QT: 402 QTc: 466 [place]: P: 52 TX: 172 QRS: -72 T: 71 INTERPRETIVE STATEMENTS: Normal sinus rhythm Right bundle branch block Left anterior fascicular block Bifascicular block Abnormal ECG Compared to ECG 10/25/2019 07:51:12 No significant changes Electronically Signed On 08-26-22 14:13:38 CDT by Josse Callaway
--- NOTE | 2022-08-26 14:15 | EKG ---
Test Date: 2022-08-24 Test Time: 14:57:15 [employer] Final Finisher: MEASUREMENT RESULTS: Intervals: Rate: 82 WI: 176 QRSD: 166 QT: 402 QTc: 469 [place]: P: 57 WI: 176 QRS: -70 T: 68 INTERPRETIVE STATEMENTS: Normal sinus rhythm Right bundle branch block Left anterior fascicular block Bifascicular block Abnormal ECG Electronically Signed On 08-26-22 14:13:35 CDT by Josse Callaway
== END 2022-08-24 17:55 | disposition home or self-care (01) ==
LOC: ER 14:21
DX: U07.1 COVID-19 (principal); Z79.82 Long term (current) use of aspirin
CPT/HCPCS: 93005 ×2; 85025; 36415; 83735; 84484; 80053; 83880; 87804 ×2; 71045; 99284; U0003

== ENCOUNTER 2023-07-07 06:00 | Day surgery (SDC) | payer BC ==
[2023-07-02 15:50] LABS: Absolute Lymphocytes (CBC) 1.4 K/uL (0.7-4.9); Lymphocytes % 16.8 % (15.3-44.8); MCV 86.3 fL (80-100); MPV 8.4 fL (7.6-11.3); Platelets 293 thou/uL (152-406); RBC Red Blood Cell Count 4.28 M/uL (4.33-5.43)
[2023-07-02 15:55] LABS: Potassium 3.3 mEq/L (3.5-5.1)
[2023-07-07] MEDS ORDERED: Ringers Lactate 1,000 ML IV ONE (06:27)
[2023-07-07] MEDS ORDERED: CEFAZOLIN SODIUM 2 GM/VIAL ONE (06:27)
[2023-07-07] MEDS ORDERED: VANCOMYCIN 1 GM/VIAL ONE (06:31)
[2023-07-07] MEDS ORDERED: THROMBIN 5000 UNITS/VIAL TOP ONE (06:32)
[2023-07-07] MEDS ORDERED: BUPIVACAINE 0.5% PF 10 ML VIAL ONE (06:57)
[2023-07-07] MEDS ORDERED: Mastisol Adhesive Liq ONE ×2 (06:58→07:04)
[2023-07-07] MEDS ORDERED: propofoL 200 MG/20 ML VIAL IV ONE ×2 (07:12→07:15)
[2023-07-07] MEDS ORDERED: LIDOCAINE 2% MPF 5 ML VIAL ONE (07:13)
[2023-07-07] MEDS ORDERED: FENTANYL CITR 100 MCG/2 ML ONE (07:13)
[2023-07-07] MEDS ORDERED: MIDAZOLAM HCL 2 MG/2 ML INJ ONE (07:13)
[2023-07-07] MEDS ORDERED: ROCURONIUM 50 MG/5 ML VIAL IV ONE (07:14)
[2023-07-07] MEDS ORDERED: ONDANSETRON 4 MG/2 ML VIAL ONE (07:14)
[2023-07-07] MEDS ORDERED: SUCCINYLCHOLINE 20 MG/ML (10 ML) IV ONE (07:35)
[2023-07-07] MEDS ORDERED: dexAMETHasone 10 MG/ML VIAL ONE (08:56)
[2023-07-07] MEDS ORDERED: KETOROLAC 30 MG/ML INJ ONE (08:56)
[2023-07-07 09:43] VITALS: O2SAT 97
[2023-07-07 10:50] VITALS: BP 157/62; TEMP 96.6
--- NOTE | 2023-07-07 11:40 | RAD REPORT ---
EXAM DESCRIPTION: RAD - Fluoroscopy <1 Hour - 07/07/2023 9:55 am CLINICAL HISTORY: EXCISION OF C5-C6, C6-C7 OSTEOPHYTES COMPARISON: None available. FINDINGS: Fourteen Images were sent to PACS, documenting hardware positions during an image guided c ervical endplate excision procedure procedure. No radiologist was available for the procedure, nor wi ll any image interpretation he provided. Please refer to the procedural report for additional details . Fluoroscopy time: 0.1 Minutes. IMPRESSION: Documentation of fluoroscopy utilization as above.
== END 2023-07-07 10:21 | disposition home or self-care (01) ==
LOC: OR 06:00
PROVIDERS: ATTEND Orthopaedic Surgery
PROC: 0PB30ZZ Excision of Cervical Vertebra, Open Approach (ICD-10-PCS; principal; 2023-07-07 07:00)
DX: R13.10 Dysphagia, unspecified (principal); M25.78 Osteophyte, vertebrae; M47.896 Other spondylosis, lumbar region; E66.9 Obesity, unspecified; I10 Essential (primary) hypertension; I50.9 Heart failure, unspecified
CPT/HCPCS: 36415; 76000; 80048; 85025; J1100; J2001; J2250; J2405; J2704; J3010; J7120